=== PATIENT | male | born 1980 | race Caucasian/White ===

== ENCOUNTER 2024-10-30 06:15 | Day surgery (SDC) | payer BC, SELFPAY | END 2024-10-30 11:49 | disposition home or self-care (01) | LOC: GI 06:15 | PROVIDERS: ATTENDING PHYSICIAN Internal Medicine | DX: Z12.11 Encounter for screening for malignant neoplasm of colon (principal); D12.2 Benign neoplasm of ascending colon; K62.1 Rectal polyp | CPT/HCPCS: 45380; 88305 ==